=== PATIENT | female | born 1975 | race African-American/Black ===

== ENCOUNTER 2022-11-07 21:22 | Inpatient (IN) | payer OTHER ==
[~2022-11-07] VITALS: Ht 160 cm; Wt 99.8 kg
[2022-11-07] MEDS ORDERED: FAMOTIDINE 20MG/2ML VIAL IV ONE (21:45)
[2022-11-07] MEDS ORDERED: TERBUTALINE SULFATE 1MG/ML VIAL SUBCUT ONE (21:45)
[2022-11-07] MEDS ORDERED: SODIUM CHLORIDE 0.9% 1,000 ML IV SCH (21:45)
[2022-11-07] MEDS ORDERED: METHYLPREDNISOLONE SOD SUCC 125 MG/2 ML VIAL IV ONE (21:45)
[2022-11-07 22:54] LABS: BASOPHILS % 0.2 % (0.0-2.0); EOSINOPHILS % 3.4 % (0.0-5.0); HEMATOCRIT. 33.8 % (36.0-48.0); HEMOGLOBIN. 10.5 g/dL (12.0-16.0); LYMPHOCYTES % 25.7 % (20.0-50.0); MEAN CORPUSCULAR HEMOGLOBIN 23.6 pg (28.0-32.0); MEAN CORPUSCULAR VOLUME 75.7 fL (81.0-99.0); MEAN PLATELET VOLUME 9.9 fl (7.4-10.4); NEUTROPHILS % 65.7 % (40.0-76.0); PLATELET 209 x1000/uL (130-400); RED BLOOD CELL COUNT 4.46 mill/uL (4.2-5.4); RED CELL DISTRIBUTION WIDTH 16.9 % (11.6-14.6)
[2022-11-07 23:01] LABS: CHLORIDE 103 mEq/L (98-107)
[2022-11-07] MEDS ORDERED: KCL 10MEQ/50ML PREMIX 50 ML IV ONE (23:45)
[2022-11-07] MEDS ORDERED: POTASSIUM CHLORIDE 20MEQ TABLET SR PO ONE (23:45)
[2022-11-08] MEDS ORDERED: CLONIDINE 0.1MG TABLET PO ONE (01:15)
[2022-11-08] MEDS ORDERED: POTASSIUM CHLORIDE 20MEQ TABLET SR PO NR (10:15)
[2022-11-08] MEDS ORDERED: ONDANSETRON HCL 4MG/2ML INJ IV PRN (11:15)
[2022-11-08] MEDS ORDERED: AMLODIPINE 10MG TABLET PO SCH (11:15)
[2022-11-08] MEDS ORDERED: ACETAMINOPHEN 325MG TABLET PO PRN (11:15)
[2022-11-08 12:00] VITALS: BP 161/98
[2022-11-08 12:46] VITALS: BP 179/80
[2022-11-08 16:00] VITALS: BP 147/99
[2022-11-08] MEDS ORDERED: HYDR-4135 MT (17:00)
[2022-11-08] MEDS ORDERED: AMLO10TA80 PO (17:00)
[2022-11-08] MEDS ORDERED: LORA10CA MT (17:01)
[2022-11-08 18:55] LABS: BASOPHILS % 0.1 % (0.0-2.0); HEMATOCRIT. 34.1 % (36.0-48.0); HEMOGLOBIN. 10.8 g/dL (12.0-16.0); LYMPHOCYTES % 8.7 % (20.0-50.0); MEAN CORPUSCULAR HEMOGLOBIN 23.8 pg (28.0-32.0); MEAN CORPUSCULAR VOLUME 75.3 fL (81.0-99.0); MONOCYTES % 4.2 % (2.0-8.0); PLATELET 241 x1000/uL (130-400); RED BLOOD CELL COUNT 4.53 mill/uL (4.2-5.4)
[2022-11-08 19:47] LABS: CLARITY URINE CLEAR (CLEAR); COLOR URINE YELLOW (YELLOW); KETONES URINE TRACE (NEGATIVE); LEUKOCYTE ESTERASE URINE 1+ (NEGATIVE); NITRITE URINE NEGATIVE (NEGATIVE); OCCULT BLOOD URINE 3+ (NEGATIVE); PH URINE 5.5 (4.5-8.0); PROTEIN URINE TRACE (NEGATIVE); SPECIFIC GRAVITY URINE 1.019 (1.005-1.030); UROBILINOGEN URINE 0.2 E.U./dL (0.2-1.0)
[2022-11-08 19:57] LABS: *AMPHETAMINES SCREEN URINE NEGATIVE (NEGATIVE); *BARBITURATES SCREEN URINE NEGATIVE (NEGATIVE); *BENZODIAZEPINES SCREEN URINE NEGATIVE (NEGATIVE); *COCAINE SCREEN URINE NEGATIVE (NEGATIVE); METHADONE URINE SCREEN NEGATIVE (NEGATIVE); OPIATES URINE SCREEN NEGATIVE (NEGATIVE); PHENCYCLIDINE URINE SCREEN NEGATIVE (NEGATIVE)
[2022-11-08 20:19] LABS: CANNABINOID URINE SCREEN PRESUMTIVE POSITIVE (NEGATIVE)
[2022-11-08 20:50] VITALS: BP 157/80
== END 2022-11-08 21:30 | disposition home or self-care (01) | DRG 641 ==
LOC: ER 21:22 → MICUSO 11-08 01:57 → 7WST 11-08 10:01
PROVIDERS: ADMIT Internal Medicine; ATTEND Internal Medicine
DX: E87.6 Hypokalemia (principal); D64.9 Anemia, unspecified; D72.829 Elevated white blood cell count, unspecified; I10 Essential (primary) hypertension; T78.40XA Allergy, unspecified, initial encounter; J45.909 Unspecified asthma, uncomplicated; E66.9 Obesity, unspecified; I16.0 Hypertensive urgency; Z68.39 Body mass index [BMI] 39.0-39.9, adult; X58.XXXA Exposure to other specified factors, initial encounter
CPT/HCPCS: 36415; 71045; 80053; 80305; 81003; 83036; 83735; 84132; 85025; 93005; 99291; J2930; J3105; J3480; J3490